=== PATIENT | male | born 1975 | race Caucasian/White ===

== ENCOUNTER 2022-05-03 17:23 | Emergency (ER) | payer BC ==
[~2022-05-03] VITALS: Ht 182.9 cm; Wt 137.4 kg
[2022-05-03 18:06] VITALS: BP_SYST 185
--- NOTE | 2022-05-03 18:54 | NUR ---
COVID/flu swabs collected and sent to lab
--- NOTE | 2022-05-03 19:11 | NUR ---
Here from home reporting cough x 10 days . Pt states he has had sinus infection and finished 10 day antibiotic course but is still coughing. Alert and oriented x 3 upon face to face assessment. Ambulatory with steady gait. Pending swab and CXR results.
--- NOTE | 2022-05-03 19:16 | NUR ---
Endorsed report to Naty SOLANO to assume care of patient.
--- NOTE | 2022-05-03 20:00 | NUR ---
PATIENT BROUGHT IN COMPLAINING OF FEVER, CHILLS, PRODUCTIVE COUGH, RUNNY NOSE AND CONGESTION X 10 DAYS. PATIENT WAS GIVEN AMOXICILLIN AND PREDNISONE BY PMD AND STILL HAS RESIDUAL DRY COUGHING. DENIES ANY PAIN. VSS NO ACUTE DISTRESS NOTED
[2022-05-03] MEDS ORDERED: PSEU120T57 PO (20:52)
[2022-05-03] MEDS ORDERED: FLUT16SP16 NS (20:52)
[2022-05-03] MEDS ORDERED: PHEDM120 PO (20:52)
[2022-05-03 21:38] VITALS: BP_SYST 132
--- NOTE | 2022-05-03 21:38 | NUR ---
Patient given written and verbal discharge instructions and verbalizes understanding. ER MD discussed with patient the results and treatment provided. Patient in stable condition. ID arm band removed. Rx of FLONASE, PHENERGAN-DM, SUDAFED 12 HR given. Patient educated on pain management and to follow up with PMD. Pain Scale 0/10 Opportunity for questions provided and answered. Medication side effect fact sheet provided.
== END 2022-05-03 21:38 | disposition home or self-care (01) ==
LOC: SED 17:23
DX: J06.9 Acute upper respiratory infection, unspecified (principal); R51.9 Headache, unspecified; I10 Essential (primary) hypertension; Z20.822 Contact with and (suspected) exposure to COVID-19; Z79.899 Other long term (current) drug therapy
CPT/HCPCS: 36415; 71045; 99284